=== PATIENT | male | born 1950 | race Two or more races ===

== ENCOUNTER 2021-08-02 18:40 | Emergency (ER) | payer BC, OTHER ==
[~2021-08-02] VITALS: Ht 172.7 cm; Wt 72.6 kg
[2021-08-02] MEDS ORDERED: LIDOCAINE 1% HCL (LOCAL ANESTH.) INJ 20ML MDV IJ ONE (21:00)
[2021-08-02] MEDS ORDERED: TETANUS-DIPTH-ACEL PERTUSSIS 0.5ML SYR Tdap IM ONE (21:00)
[2021-08-02] MEDS ORDERED: LIDOCAINE 1% HCL (LOCAL ANESTH.) INJ 20ML MDV ONE (21:01)
[2021-08-02 22:36] LABS: Basophils # (auto) 0.1 10 ^3/uL (0-0.2); Eosinophils # (auto) 0 10 ^3/uL (0-0.8); Eosinophils % (auto) 0.1 % (0.0-7.0); Mean Corpuscular Volume 72.8 fL (80.0-100.0)
[2021-08-02 22:44] LABS: Basophils % (auto) 0.5 % (0.0-2.0); Lymphocytes # (auto) 0.8 10 ^3/uL (0.4-5.4); Lymphocytes % (auto) 7.4 % (10.0-50.0); Mean Corpuscular Hemoglobin 23.9 pg (28.0-32.0); Mean Corpuscular Hgb Conc. 32.8 g/dL (32.0-36.0); Monocytes # (auto) 0.7 10 ^3/uL (0-1.3); Monocytes % (auto) 6.2 % (0.0-12.0); Neutrophils # (auto) 9.1 10 ^3/uL (1.6-8.6); Neutrophils % (auto) 85.8 % (37.0-80.0); Red Blood Cells 2.75 10^6/uL (4.5-5.90); Red Cell Distribution Width 20.4 % (11.8-14.3); White Blood Cell 10.7 10^3/uL (4.4-10.8)
[2021-08-02 22:46] LABS: Hemoglobin 6.6 g/dL (13.5-17.5)
[2021-08-02 22:48] LABS: INR 1.24 (0.9-1.15)
[2021-08-02 23:00] LABS: Urine Bacteria NONE SEEN /hpf (None Seen); Urine Blood Negative /uL (Negative); Urine Specific Gravity 1.015 (1.001-1.035); Urine WBC 1 /hpf (0 - 3)
[2021-08-02 23:03] LABS: Chloride 105 mmol/L (98-107); Potassium 3.3 mmol/L (3.5-5.1); Sodium 136 mmol/L (136-145)
[2021-08-02 23:07] LABS: Acetaminophen 3.2 ug/mL (10-30); Salicylate < 1.7 mg/dL (2.8-20.0)
[2021-08-02 23:12] LABS: Amphetamine Screen, Urine NEGATIVE (NEGATIVE); Barbiturate Scree,Urine NEGATIVE (NEGATIVE); Benzodiazephine Screen, Urine NEGATIVE (NEGATIVE); Cannabinoid Screen, Urine NEGATIVE (NEGATIVE); Cocaine Screen, Urine NEGATIVE (NEGATIVE); Opiate Scree,Urine NEGATIVE (NEGATIVE); Phencyclidine Screen, Urine NEGATIVE (NEGATIVE)
[2021-08-02 23:12] LABS: Alanine Aminotransferase 13 U/L (16-61); Albumin 1.9 g/dL (3.4-5.0); Alkaline Phosphatase 76 U/L (45-117); Anion Gap 7 (5-15); Aspartate Aminotransferase 13 U/L (15-37); BUN/Creatinine Ratio 20.8; Bilirubin, Total 0.3 mg/dL (0.2-1.0); Blood Urea Nitrogen 10 mg/dL (7-18); Calcium 7.8 mg/dL (8.5-10.1); Carbon Dioxide 24 mmol/L (21-32); GFR African American 220 mL/min; GFR Non-African American 182 mL/min; Glucose 93 mg/dL (74-106); Magnesium 2.3 mg/dL (1.6-2.6); Total Protein 5.2 g/dL (6.4-8.2)
[2021-08-02 23:15] LABS: Alcohol, Urine < 3.0 mg/dL (0-10)
[2021-08-02 23:16] LABS: Blood Alcohol < 3.0 mg/dL (0-5)
[2021-08-02 23:41] LABS: INR 1.28 (0.9-1.15); Partial Thromboplastin Time 30.4 sec (23.6-33.0)
[2021-08-03 04:07] VITALS: BP 123/62
[2021-08-03 04:18] VITALS: BP 117/59
[2021-08-03 07:00] VITALS: BP 111/56
[2021-08-03 08:39] LABS: Basophils # (auto) 0.1 10 ^3/uL (0-0.2); Eosinophils # (auto) 0 10 ^3/uL (0-0.8); Hemoglobin 8.4 g/dL (13.5-17.5); Lymphocytes # (auto) 0.6 10 ^3/uL (0.4-5.4); Mean Corpuscular Volume 77.2 fL (80.0-100.0)
[2021-08-03 08:41] LABS: Basophils % (auto) 0.8 % (0.0-2.0); Eosinophils % (auto) 0.1 % (0.0-7.0); Hematocrit 25.8 % (41.0-53.0); Lymphocytes % (auto) 7.5 % (10.0-50.0); Mean Corpuscular Hgb Conc. 32.4 g/dL (32.0-36.0); Monocytes # (auto) 0.6 10 ^3/uL (0-1.3); Monocytes % (auto) 7.1 % (0.0-12.0); Neutrophils # (auto) 6.8 10 ^3/uL (1.6-8.6); Neutrophils % (auto) 84.5 % (37.0-80.0); Red Blood Cells 3.35 10^6/uL (4.5-5.90); Red Cell Distribution Width 22.4 % (11.8-14.3)
[2021-08-03] MEDS ORDERED: POTASSIUM EFFERVESENT TAB 25 MEQ PO ONE (09:00)
[2021-08-04 07:42] VITALS: BP 112/66
== END 2021-08-04 06:02 | disposition home or self-care (01) ==
LOC: EDBD 18:40 → ER 18:42 → EEVIPCON 18:42 → ER 08-04 06:02
DX: S61.512A Laceration without foreign body of left wrist, initial encounter (principal); D64.9 Anemia, unspecified; T14.91XA Suicide attempt, initial encounter; Z20.822 Contact with and (suspected) exposure to COVID-19; X78.8XXA Intentional self-harm by other sharp object, initial encounter; Y93.89 Activity, other specified; Y92.89 Other specified places as the place of occurrence of the external cause; Y99.8 Other external cause status
CPT/HCPCS: 36415; 36430; 80053; 80307; 80320; 80329; 81001; 83735; 85025; 85610; 85730; 86850; 86900; 86901; 86920; 87426; 90471; 90715; 99285; J2001; P9016

== ENCOUNTER 2021-08-14 13:17 | Emergency (ER) | payer BC ==
[~2021-08-14] VITALS: Ht 167.6 cm; Wt 63.0 kg
[2021-08-14 14:31] LABS: Anion Gap 7 (5-15); Blood Urea Nitrogen 10 mg/dL (7-18); Calcium 7.8 mg/dL (8.5-10.1); Carbon Dioxide 26 mmol/L (21-32); Chloride 98 mmol/L (98-107); Glucose 136 mg/dL (74-106); Potassium 3.5 mmol/L (3.5-5.1); Sodium 131 mmol/L (136-145)
[2021-08-14 14:35] LABS: Basophils # (auto) 0 10 ^3/uL (0-0.2); Basophils % (auto) 0.2 % (0.0-2.0); Eosinophils # (auto) 0 10 ^3/uL (0-0.8); Eosinophils % (auto) 0.1 % (0.0-7.0); Hematocrit 23.1 % (41.0-53.0); Hemoglobin 7.2 g/dL (13.5-17.5); Lymphocytes # (auto) 0.8 10 ^3/uL (0.4-5.4); Lymphocytes % (auto) 5.4 % (10.0-50.0); Mean Corpuscular Hemoglobin 24.4 pg (28.0-32.0); Mean Corpuscular Hgb Conc. 31.2 g/dL (32.0-36.0); Mean Corpuscular Volume 78.1 fL (80.0-100.0); Monocytes # (auto) 0.5 10 ^3/uL (0-1.3); Monocytes % (auto) 3.5 % (0.0-12.0); Neutrophils # (auto) 13.8 10 ^3/uL (1.6-8.6); Neutrophils % (auto) 90.8 % (37.0-80.0); Red Blood Cells 2.96 10^6/uL (4.5-5.90); White Blood Cell 15.2 10^3/uL (4.4-10.8)
[2021-08-14 14:36] LABS: Alanine Aminotransferase 16 U/L (16-61); Alkaline Phosphatase 80 U/L (45-117); Aspartate Aminotransferase 17 U/L (15-37); BUN/Creatinine Ratio 17.2; Bilirubin, Total 0.3 mg/dL (0.2-1.0); GFR African American 177 mL/min; GFR Non-African American 146 mL/min; Total Protein 5.6 g/dL (6.4-8.2)
[2021-08-14] MEDS ORDERED: IOHEXOL 300 MG/ML 100ML BOTTLE IJ ONE (16:24)
[2021-08-14] MEDS ORDERED: PIPERACILLIN-TAZOB 3.375GM 100 ML IV ONE (19:15)
[2021-08-15 01:18] VITALS: BP 112/61
[2021-08-15 01:33] VITALS: BP 105/58
[2021-08-15 02:05] VITALS: BP 113/61
== END 2021-08-15 02:25 | disposition short-term general hospital (02) ==
LOC: ER 13:17
DX: D64.9 Anemia, unspecified (principal); K63.1 Perforation of intestine (nontraumatic); C26.0 Malignant neoplasm of intestinal tract, part unspecified; Z20.822 Contact with and (suspected) exposure to COVID-19; Z88.8 Allergy status to other drugs, medicaments and biological substances
CPT/HCPCS: 36415; 36430; 74177; 80053; 83605; 84484; 85025; 86850; 86900; 86901; 86920; 87040; 87426; 93005; 96365; 96366; 99291; J2543; J7050; P9016; Q9967

== ENCOUNTER 2021-12-11 09:47 | Inpatient (IN) | payer BC ==
[2021-12-11] VITALS (12 sets, daily range): BP systolic 102–133; BP diastolic 51–81
[~2021-12-11] VITALS: Ht 170.2 cm; Wt 59.4 kg
[2021-12-11 10:54] LABS: Basophils # (auto) 0 10 ^3/uL (0-0.2); Eosinophils # (auto) 0 10 ^3/uL (0-0.8); Eosinophils % (auto) 0.1 % (0.0-7.0); Lymphocytes # (auto) 0.5 10 ^3/uL (0.4-5.4); Nucleated Red Blood Cells % 0.1 %
[2021-12-11 10:55] LABS: Basophils % (auto) 0.2 % (0.0-2.0); Hematocrit 14.2 % (41.0-53.0); Lymphocytes % (auto) 5.1 % (10.0-50.0); Mean Corpuscular Hemoglobin 23.9 pg (28.0-32.0); Mean Corpuscular Hgb Conc. 32.7 g/dL (32.0-36.0); Mean Corpuscular Volume 72.9 fL (80.0-100.0); Monocytes # (auto) 0.4 10 ^3/uL (0-1.3); Monocytes % (auto) 3.6 % (0.0-12.0); Neutrophils # (auto) 9.2 10 ^3/uL (1.6-8.6); Red Blood Cells 1.94 10^6/uL (4.5-5.90); Red Cell Distribution Width 17.6 % (11.8-14.3); White Blood Cell 10.1 10^3/uL (4.4-10.8)
[2021-12-11 10:58] LABS: Hemoglobin 4.6 g/dL (13.5-17.5)
[2021-12-11 11:12] LABS: INR 1.21 (0.9-1.15); Partial Thromboplastin Time 25.4 sec (23.6-33.0); Potassium 3.4 mmol/L (3.5-5.1)
[2021-12-11 11:16] LABS: Albumin 2.2 g/dL (3.4-5.0); BUN/Creatinine Ratio 18.4; Bilirubin, Total 0.3 mg/dL (0.2-1.0); Calcium 7.8 mg/dL (8.5-10.1)
[2021-12-11 11:20] LABS: Lactic Acid w/Reflex 3.1 mmol/L (0.4-2.0)
[2021-12-11] MEDS ORDERED: IOHEXOL 350 MG/ML 100ML IJ ONE (15:01)
[2021-12-11] MEDS ORDERED: NITROGLYCERIN 0.4 MG SL TAB SL PRN (15:30)
[2021-12-11] MEDS ORDERED: MORPHINE SULFATE INJECTION 2 MG/ML SYRG IV PRN (15:30)
[2021-12-11] MEDS ORDERED: PNEUMOCOCCAL VACC POLYS 25 MCG/0.5 ML VIAL IM ONE (21:00)
[2021-12-11] MEDS ORDERED: INFLUENZA QUAD 2021-2022 0.5 ML SYRG IM ONE (21:00)
[2021-12-12 05:00] VITALS: BP 95/58
[2021-12-12 06:01] LABS: Calcium 7.3 mg/dL (8.5-10.1); Potassium 3.1 mmol/L (3.5-5.1)
[2021-12-12 06:04] LABS: BUN/Creatinine Ratio 28.6
[2021-12-12 06:06] LABS: Basophils # (auto) 0 10 ^3/uL (0-0.2); Eosinophils # (auto) 0 10 ^3/uL (0-0.8); Lymphocytes # (auto) 0.6 10 ^3/uL (0.4-5.4); Nucleated Red Blood Cells % 0.2 %
[2021-12-12 06:07] LABS: Basophils % (auto) 0.1 % (0.0-2.0); Hemoglobin 8.5 g/dL (13.5-17.5); Mean Corpuscular Hemoglobin 27.2 pg (28.0-32.0); Mean Corpuscular Hgb Conc. 34.1 g/dL (32.0-36.0); Mean Corpuscular Volume 79.7 fL (80.0-100.0); Monocytes # (auto) 0.5 10 ^3/uL (0-1.3); Monocytes % (auto) 5.3 % (0.0-12.0); Neutrophils # (auto) 8.6 10 ^3/uL (1.6-8.6); Neutrophils % (auto) 88.6 % (37.0-80.0); Red Blood Cells 3.14 10^6/uL (4.5-5.90); Red Cell Distribution Width 18.6 % (11.8-14.3); White Blood Cell 9.7 10^3/uL (4.4-10.8)
[2021-12-12 08:52] VITALS: BP 111/65
[2021-12-12] MEDS ORDERED: PANTOPRAZOLE 40 MG TAB PO SCH (10:00)
[2021-12-12 13:00] VITALS: BP 109/63
[2021-12-12 14:30] VITALS: BP 109/65
[2021-12-12] MEDS ORDERED: PNEUMOCOCCAL VACC POLYS 25 MCG/0.5 ML VIAL IM ONE (14:30)
== END 2021-12-12 17:22 | disposition left against medical advice (07) | DRG 375 ==
LOC: ER 09:47 → OVERFLOW 15:28 → WEST WING 18:20
PROVIDERS: ADMIT Internal Medicine; ATTEND Internal Medicine
PROC: 30233N1 Transfusion of Nonautologous Red Blood Cells into Peripheral Vein, Percutaneous Approach (ICD-10-PCS; principal; 2021-12-11)
PROC: 3E0234Z Introduction of Serum, Toxoid and Vaccine into Muscle, Percutaneous Approach (ICD-10-PCS; 2021-12-12)
DX: C18.9 Malignant neoplasm of colon, unspecified (principal); E87.2 Acidosis; E44.1 Mild protein-calorie malnutrition; D64.9 Anemia, unspecified; Z20.822 Contact with and (suspected) exposure to COVID-19; Z53.29 Procedure and treatment not carried out because of patient's decision for other reasons; Z85.038 Personal history of other malignant neoplasm of large intestine; Z88.8 Allergy status to other drugs, medicaments and biological substances; Z23 Encounter for immunization
CPT/HCPCS: 36415; 36430; 71045; 71275; 80048; 80053; 83605; 83735; 83880; 84484; 85025; 85379; 85610; 85730; 86850; 86900; 86901; 86920; 87040; 87081; 87426; 90686; 93005; 96372; 99291; G0378